=== PATIENT | female | born 1970 | race American Indian/Alaskan Native ===

== ENCOUNTER 2021-10-07 23:16 | Observation (INO) | payer OTHER ==
[~2021-10-07] VITALS: Ht 170.2 cm; Wt 65.8 kg
[2021-10-07 23:56] LABS: BASOPHILS ABSOLUTE AUTO 0.09 K/mm3 (0.00-0.23); BASOPHILS PERCENT AUTO 1 % (0-2); EOSINOPHILS ABSOLUTE AUTO 0.16 K/mm3 (0.00-0.68); EOSINOPHILS PERCENT AUTO 2 % (0-6); Hematocrit 44.5 % (33.0-51.0); Hemoglobin 14.7 g/dL (11.5-16.0); Mean Corpuscular Volume 97 fL (80-100); Mean Platelet Volume 11.9 fL (9.1-12.4); Platelet Count 229 K/mm3 (150-400); RDW Coefficient Variation 13.2 % (11.7-14.2); RDW Standard Deviation 46.8 fL (35.1-46.3)
[2021-10-07 23:58] LABS: IMMATURE GRAN ABSOLUTE AUTO 0.05 K/mm3 (0.00-0.10); IMMATURE GRAN PERCENT AUTO 1 % (0-1); LYMPHOCYTES ABSOLUTE AUTO 4.96 K/mm3 (0.84-5.20); LYMPHOCYTES PERCENT AUTO 46 % (21-46); MONOCYTES ABSOLUTE AUTO 0.64 K/mm3 (0.16-1.47); MONOCYTES PERCENT AUTO 6 % (4-13); NEUTROPHILS PERCENT AUTO 46 % (41-73)
[2021-10-08 00:11] LABS: Alanine Aminotransfer (ALT/SGP 26 U/L (12-78); Albumin, Blood 3.3 g/dL (3.4-5.0); Albumin/Globulin Ratio 0.7 (0.8-1.8); Alk Phos 107 U/L (50-136); Anion Gap 7 mmol/L (6-16); Aspartate Aminotrans (AST/SGOT 28 U/L (12-37); Bilirubin, Total 0.2 mg/dL (0.1-1.0); Blood Urea Nitrogen 5 mg/dL (8-24); Bun/Creatinine Ratio 7.7 (12.0-20.0); CO2, Blood 24 mmol/L (21-32); Calcium, Blood 8.1 mg/dL (8.5-10.1); Chloride, Blood 108 mmol/L (98-108); Creatinine, Blood 0.65 mg/dL (0.40-1.00); Globulin, Blood 4.6 g/dL (2.2-4.0); Glomerular Filtration Rate >60 (60-); Glucose, Blood 111 mg/dL (70-99); Potassium, Blood 3.8 mmol/L (3.5-5.5); Sodium, Blood 139 mmol/L (136-145); Total Protein, Blood 7.9 g/dL (6.4-8.2)
[2021-10-08 01:40] LABS: Influenza A, PCR NEGATIVE (NEGATIVE); Influenza B, PCR NEGATIVE (NEGATIVE); Resp Syncytial Virus, PCR NEGATIVE (NEGATIVE); SARS-Cov-2 (COVID-19) PCR, MMC NEGATIVE (NEGATIVE)
--- NOTE | 2021-10-08 04:41 | NUR ---
PT ARRIVED ON THIS UNIT FROM THE ED BY STRETCHER AT [facility] AND WAS ADMITTED IN ROOM 221. IS AAOX4, C/O INCREASED PAIN IN THE RLE. DR EDMOND CALLED AND GAVE ORDER FOR IV FENTANYL WHICH WAS ADMINISTERED TO THE PT BEFORE SHE WENT TO SLEEP. SHE WAS ASSISTED WITH BATHROOM AND TOILETING NEEDS, ASSISTED WITH TRANSFERRING NEEDS. HER CALL LIGHT WAS PROVIDED TO HER AND WAS ENCOURAGED TO CALL FOR HELP WHEN ASSISTANCE IS NEEDED SHE IS MONITORED.
--- NOTE | 2021-10-08 10:16 | NUR ---
PT WENT TO [facility] FOR SURGERY WITH DR MUKHERJEE
--- NOTE | 2021-10-08 16:19 | NUR ---
SHIFT SUMMARY PT A&OX4, VSS/RA, NICOTINE PATCH ON, CIWA NEG, VOIDING WELL, GWENDOLYN PO REG DIET. S/P R TIBIAL RODDING, SPLINT/EITAN WRAP, WIGGLES TOES, CAP REFILL WNL. AMB FWW/GB/SBA TO CHAIR/BED/BSC; WORKED WITH PT TODAY. PAIN MANAGED WITH 10 MG OXY AND TYLENOL. 20G IV RUE INFUSING MVI @ 75 MLS/HR AND ABX SCHEDULED. WILL REPORT TO ONCOMING MIGUEL ARNOLD.
[2021-10-09 05:20] LABS: BASOPHILS ABSOLUTE AUTO 0.02 K/mm3 (0.00-0.23); BASOPHILS PERCENT AUTO 0 % (0-2); EOSINOPHILS PERCENT AUTO 0 % (0-6); Hematocrit 33.5 % (33.0-51.0); Hemoglobin 11.1 g/dL (11.5-16.0); IMMATURE GRAN ABSOLUTE AUTO 0.06 K/mm3 (0.00-0.10); IMMATURE GRAN PERCENT AUTO 1 % (0-1); LYMPHOCYTES ABSOLUTE AUTO 1.77 K/mm3 (0.84-5.20); LYMPHOCYTES PERCENT AUTO 15 % (21-46); MONOCYTES ABSOLUTE AUTO 0.86 K/mm3 (0.16-1.47); MONOCYTES PERCENT AUTO 8 % (4-13); Mean Corpuscular HGB Conc 33.1 g/dL (31.5-36.5); Mean Corpuscular Volume 97 fL (80-100); Mean Platelet Volume 12.3 fL (9.1-12.4); NEUTROPHILS ABSOLUTE AUTO 8.77 K/mm3 (1.96-9.15); NEUTROPHILS PERCENT AUTO 76 % (41-73); Platelet Count 174 K/mm3 (150-400); RDW Coefficient Variation 13.3 % (11.7-14.2); RDW Standard Deviation 47.8 fL (35.1-46.3); Red Blood Cell Count 3.47 M/mm3 (3.80-5.20); White Blood Cell Count 11.48 K/mm3 (4.00-11.30)
[2021-10-09 05:58] LABS: Alanine Aminotransfer (ALT/SGP 15 U/L (12-78); Albumin, Blood 2.4 g/dL (3.4-5.0); Albumin/Globulin Ratio 0.7 (0.8-1.8); Alk Phos 89 U/L (50-136); Anion Gap 5 mmol/L (6-16); Aspartate Aminotrans (AST/SGOT 17 U/L (12-37); Bilirubin, Total 0.3 mg/dL (0.1-1.0); Blood Urea Nitrogen 4 mg/dL (8-24); Bun/Creatinine Ratio 6.2 (12.0-20.0); CO2, Blood 27 mmol/L (21-32); Calcium, Blood 8.1 mg/dL (8.5-10.1); Chloride, Blood 109 mmol/L (98-108); Creatinine, Blood 0.64 mg/dL (0.40-1.00); Globulin, Blood 3.3 g/dL (2.2-4.0); Glomerular Filtration Rate >60 (60-); Glucose, Blood 104 mg/dL (70-99); Sodium, Blood 141 mmol/L (136-145)
[2021-10-09 06:21] LABS: Total Protein, Blood 5.7 g/dL (6.4-8.2)
--- NOTE | 2021-10-09 07:08 | NUR ---
SHIFT SUMMARY POD 1 R TIB/FIB RODDING, A/OX 4, VSS OTHER THAN ELEVATED BP, CIWA'S GOING UP AND PT MEDICATED PER EMAR, POSSIBLE DC TODAY, PAIN WELL MANAGED PER EMAR. CALL LIGHT IN REACH, REPORT GIVEN TO DAY RN.
[2021-10-09] MEDS ORDERED: OXYC5 PO (12:12)
[2021-10-09] MEDS ORDERED: ACET500 PO (12:17)
[2021-10-09] MEDS ORDERED: NICO21TP TOP (12:17)
--- NOTE | 2021-10-09 14:10 | NUR ---
DISCHARGE SUMMARY PT A&OX4, VSS, GWENDOLYN PO, VOIDING WELL, AMB SBA/FWW/GB 50% WB, PAIN MANAGED WITH 10 MG OXY,TYLENOL. LEFT FLOOR VIA WC WITH SHELLFISH DREDGE OPERATOR, TO GO HOME WITH FRIEND, WITH ALL PERSONAL POSSESSIONS INCLUDING DC PACKET,1 NARC SCRIPT, 1 CRUTCHES SCRIPT. DC INSTRUCTION PROVIDED. PT REP UNDERSTANDING THOSE INSTRUCTIONS INCLUDING FU WITH SURGEON 2 WKS, OK TO SHOWER BUT TO KEEP DRESSING DRY. PT REP HAVING FWW/BSC/SHOWER CHAIR AT HOME. IV DC'D.
== END 2021-10-09 12:29 | disposition home or self-care (01) ==
LOC: ER 23:16 → SURS 10-08 01:47 → ER 10-08 01:47 → SURS 10-08 02:51
PROVIDERS: Orthopaedic Surgery; Physician Assistant; ADMIT Internal Medicine
PROC: 0QSG06Z Reposition Right Tibia with Intramedullary Internal Fixation Device, Open Approach (ICD-10-PCS; principal; 2021-10-08 10:30)
DX: S82.301A Unspecified fracture of lower end of right tibia, initial encounter for closed fracture (principal); S82.491A Other fracture of shaft of right fibula, initial encounter for closed fracture; W18.39XA Other fall on same level, initial encounter; F10.129 Alcohol abuse with intoxication, unspecified; F17.210 Nicotine dependence, cigarettes, uncomplicated; Z20.822 Contact with and (suspected) exposure to COVID-19
CPT/HCPCS: 0241U; 29505; 36415; 73590; 80053; 81025; 85025; 96374; 96375; 97110; 97161; 97530; 99284-25; A9270; C1713; C1769; J0171; J0330; J0690; J1100; J1170; J1885; J2060; J2250; J2270; J2405; J2704; J3010; J3411; J3475; J7030; J7042

== ENCOUNTER 2022-06-16 18:14 | Emergency (ER) | payer OTHER ==
[~2022-06-16] VITALS: Ht 170.2 cm; Wt 72.6 kg
[~2022-06-16 18:14] MED LIST: ACET500 PO; NICO21TP TOP; OXYC5 PO
[2022-06-16] MEDS ORDERED: Percocet 5-3251 EACH PO (21:51)
== END 2022-06-16 22:11 | disposition home or self-care (01) ==
LOC: ER 18:14
DX: S52.502A Unspecified fracture of the lower end of left radius, initial encounter for closed fracture (principal); F17.210 Nicotine dependence, cigarettes, uncomplicated; W01.0XXA Fall on same level from slipping, tripping and stumbling without subsequent striking against object, initial encounter
CPT/HCPCS: 73110; A9270

== ENCOUNTER 2022-06-20 08:52 | Day surgery (SDC) | payer OTHER ==
[~2022-06-20] VITALS: Ht 170.2 cm; Wt 63.8 kg
[~2022-06-20 08:52] MED LIST changes: +Percocet 5-3251 EACH PO
--- NOTE | 2022-06-20 11:31 | NUR ---
AMBULATED TO DAY SURGERY FOR LEFT WRIST FRACTURE HISTORY AND PHYSICAL, MEDS AND ALLERGIES REVIEWED PRE-OP TEACHING COMPLETE
--- NOTE | 2022-06-20 16:40 | NUR ---
Patient up to Ambulate independently. Gait steady. Discharge instructions reviewed with patient AND BEST FRIEND Patient verbalizes understanding. Copy given to patient to take home. Discharged via wheelchair to private car for ride home WITH FRIEND
== END 2022-06-20 23:57 | disposition home or self-care (01) ==
LOC: ORSCMMR 08:52
PROVIDERS: Orthopaedic Surgery
PROC: 0PSJ04Z Reposition Left Radius with Internal Fixation Device, Open Approach (ICD-10-PCS; principal; 2022-06-20 12:30)
DX: S52.572A Other intraarticular fracture of lower end of left radius, initial encounter for closed fracture (principal); F17.210 Nicotine dependence, cigarettes, uncomplicated
CPT/HCPCS: A9270; C1713; J0690; J1100; J2250; J2370; J2405; J2704; J3010; J7120

== ENCOUNTER 2022-11-04 22:12 | Emergency (ER) | payer OTHER ==
[~2022-11-04] VITALS: Ht 170.2 cm; Wt 70.3 kg
== END 2022-11-04 23:14 | disposition home or self-care (01) ==
LOC: ER 22:12
DX: S01.01XA Laceration without foreign body of scalp, initial encounter (principal); W19.XXXA Unspecified fall, initial encounter; F10.129 Alcohol abuse with intoxication, unspecified; F17.210 Nicotine dependence, cigarettes, uncomplicated; Z88.8 Allergy status to other drugs, medicaments and biological substances; Z79.899 Other long term (current) drug therapy
CPT/HCPCS: 12002; 99283-25

== ENCOUNTER → 2024-10-31 | Outpatient (CLI) | payer OTHER ==
[2024-10-31 15:38] LABS: BASOPHILS ABSOLUTE AUTO 0.08 K/mm3 (0.00-0.23); BASOPHILS PERCENT AUTO 1 % (0-2); EOSINOPHILS ABSOLUTE AUTO 0.04 K/mm3 (0.00-0.68); EOSINOPHILS PERCENT AUTO 0 % (0-6); Hematocrit 41.7 % (33.0-51.0); Hemoglobin 14.4 g/dL (11.5-16.0); IMMATURE GRAN ABSOLUTE AUTO 0.02 K/mm3 (0.00-0.10); IMMATURE GRAN PERCENT AUTO 0 % (0-1); LYMPHOCYTES ABSOLUTE AUTO 2.25 K/mm3 (0.84-5.20); LYMPHOCYTES PERCENT AUTO 19 % (21-46); MONOCYTES ABSOLUTE AUTO 0.58 K/mm3 (0.16-1.47); MONOCYTES PERCENT AUTO 5 % (4-13); Mean Corpuscular HGB 33.1 pg (26.0-34.0); Mean Corpuscular HGB Conc 34.5 g/dL (31.5-36.5); Mean Corpuscular Volume 96 fL (80-100); Mean Platelet Volume 11.7 fL (9.1-12.4); NEUTROPHILS ABSOLUTE AUTO 8.62 K/mm3 (1.96-9.15); NEUTROPHILS PERCENT AUTO 74 % (41-73); Platelet Count 178 K/mm3 (150-400); RDW Coefficient Variation 12.6 % (11.7-14.2); RDW Standard Deviation 44.9 fL (35.1-46.3); Red Blood Cell Count 4.35 M/mm3 (3.80-5.20); White Blood Cell Count 11.59 K/mm3 (4.00-11.30)
[2024-10-31 15:49] LABS: Albumin, Blood 3.8 g/dL (3.4-5.0); Bilirubin, Total 0.6 mg/dL (0.1-1.0); Calcium, Blood 8.8 mg/dL (8.5-10.1); Creatinine, Blood 0.86 mg/dL (0.40-1.00); Globulin, Blood 3.9 g/dL (2.2-4.0); Total Protein, Blood 7.7 g/dL (6.4-8.2)
== END ==
LOC: LAB SHORT 15:35 → LAB 15:35
PROVIDERS: Family Medicine
DX: I10 Essential (primary) hypertension (principal)
CPT/HCPCS: 80053; 84484; 85025

== ENCOUNTER → 2025-01-20 | Outpatient (CLI) | payer OTHER ==
[2025-01-20 15:20] LABS: Stool Occult Bld Immuno 1 Negative (NEGATIVE)
== END ==
LOC: LAB SHORT 10:51 → LAB 10:51
PROVIDERS: Physician Assistant
DX: Z12.11 Encounter for screening for malignant neoplasm of colon (principal)
CPT/HCPCS: G0328